=== PATIENT | female | born 1965 | race Caucasian/White ===

== ENCOUNTER → 2016-11-19 | Outpatient (CLI) | payer OTHER ==
[2016-04-16 19:34] VITALS: BP 117/80
[~2016-11-19] MED LIST: FLUC150T PO; HYDR-971 PO; SULF1TAB24 PO
[2016-11-20 05:18] LABS: RHEUMATOID FACTOR <10.0 IU/mL (0.0-13.9)
[2016-11-20 22:14] LABS: CYCLIC CITRULLIN PEP AB 10 units (0-19)
== END | disposition home or self-care (01) ==
LOC: LAB 15:05
PROVIDERS: ATTEND Internal Medicine Rheumatology
DX: M25.50 Pain in unspecified joint (principal)
CPT/HCPCS: 36415; 85651; 86140; 86200; 86431

== ENCOUNTER → 2016-12-03 | Outpatient (CLI) | payer OTHER ==
[2016-04-16 19:34] VITALS: BP 117/80
--- NOTE | 2016-12-03 14:09 | RAD ---
MR of the left knee HISTORY: Pain and discomfort for 2 months. No known injury. TECHNIQUE: Routine multiplanar sequences are obtained. FINDINGS: Mild signal and undersurface irregularity of the posterior horn medial meniscus. There is distortion of the medial meniscus with extrusion from the joint compartment. Findings are compatible with a degenerative tear. No evidence of lateral meniscal tear. Anterior and posterior cruciate ligaments are intact. Mild proximal medial collateral ligament sprain. The iliotibial band unremarkable. Fibular collateral ligament, biceps femoris tendon and popliteus tendon are intact. Extensor mechanism is intact. Small joint effusion. No evidence of osteochondral loose body. Severe chondromalacia at the medial joint compartment. Mild subchondral marrow edema at the medial femoral condyle with minimal flattening of the overlying subchondral bone surface, no evidence of a fracture. Bone marrow edema at the medial tibial plateau. Moderate chondromalacia at the posterior lateral tibial plateau. Moderate to severe patellofemoral joint chondromalacia. No bone lesion or acute fracture. Ramirez cyst with internal septations measures 8 cm vertical. Mild soft tissue edema around the medial knee. Mild lateral patellar tilt. IMPRESSION: 1. Medial meniscal tear. 2. Primary osteoarthritis. 3. Acute subchondral marrow edema at the medial femoral condyle with slight subchondral bone flattening, could be degenerative, marrow contusion from recent trauma, or repetitive stress injury. No evidence of definable fracture line. Spontaneous osteonecrosis could also be considered but less likely. 4. Ramirez's cyst. Electronically signed by: Sunil Rosen MD (12/03/2016 2:06 PM)
== END | disposition home or self-care (01) ==
LOC: MRI 12:18
PROVIDERS: ATTEND Internal Medicine Rheumatology
DX: M17.12 Unilateral primary osteoarthritis, left knee (principal)
CPT/HCPCS: 73721